=== PATIENT | male | born 1985 | race Caucasian/White ===

== ENCOUNTER 2016-10-12 04:42 | Emergency (ER) | payer BC ==
[2016-10-12 05:29] VITALS: RESP 16
[2016-10-12] MEDS ORDERED: NITROGLYCERIN SL TABS 0.4 MG TAB SUBLINGUAL STA (05:30)
[2016-10-12] MEDS ORDERED: ASPIRIN 81 MG CHEW PO STA (05:30)
--- NOTE | 2016-10-12 05:32 | ED ---
Chest Pain HPI - General Chief Complaint: Chest Pain Stated Complaint: CHEST PAINW Time Seen by Provider: 10/12/16 04:54 Source: patient Mode of arrival: wheelchair Limitations: no limitations - History of Present Illness Initial Comments: This patient is a 31-year-old man who presents to be evaluated for pain to the left side of his chest. He indicates the left anterior axillary line over the lower ribs there. He describes it as a tightness, states it is constant, about 6 out of 10 intensity. He has not noted any worsening or relieving factors. And after review of systems he is denying any associated symptoms. 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) Complaint: chest pain -: hour(s) (9) Onset: other (While at work) Pain Location: left chest Pain Radiation: none Severity scale (1-10): 6 Quality: tightness Consistency: constant Improves With: nothing Worsens With: nothing Treatments Prior to Arrival: none - Related Data Home Medications Medication Instructions Recorded Confirmed No Known Home Medications [No 10/12/16 10/12/16 Known Home Medications] Allergies Allergy/AdvReac Type Severity Reaction Status Date / Time No Known Allergies Allergy Verified 10/12/16 04:50 Review of Systems ROS Statement: Those systems with pertinent positive or pertinent negative responses have been documented in the HPI. ROS Other: All systems not noted in ROS Statement are negative. Constitutional: Denies: fever, chills, weakness Respiratory: Denies: cough, dyspnea Cardiovascular: Reports: as per HPI, chest pain. Denies: palpitations, dyspnea on exertion, edema Gastrointestinal: Denies: abdominal pain, nausea, vomiting Genitourinary: Denies: dysuria Musculoskeletal: Denies: back pain Skin: Denies: rash Neurological: Denies: headache, weakness, numbness EKG Findings - EKG Results: EKG: interpreted by AYUSH AYALA, sinus rhythm (Rate 62 bpm), normal axis, normal QRS, normal ST/T, no acute changes - OR, Pacemaker, Normal: Normal tracing: normal tracing Past Medical History Past Medical History: No Reported History History of Any Multi-Drug Resistant Organisms: None Reported Past Surgical History: No Surgical Hx Reported Past Psychological History: No Psychological Hx Reported Smoking Status: Never smoker Past Alcohol Use History: None Reported Past Drug Use History: None Reported General Exam Limitations: no limitations General appearance: alert, in no apparent distress Head exam: Present: atraumatic, normocephalic Eye exam: Present: normal appearance. Absent: scleral icterus, conjunctival injection Respiratory exam: Present: normal lung sounds bilaterally. Absent: respiratory distress, wheezes, rales, rhonchi, stridor, chest wall tenderness, accessory muscle use, decreased breath sounds Cardiovascular Exam: Present: regular rate, normal rhythm, normal heart sounds. Absent: systolic murmur, diastolic murmur, rubs, gallop GI/Abdominal exam: Present: soft. Absent: distended, tenderness, guarding, rebound, mass Extremities exam: Present: normal inspection, normal capillary refill. Absent: pedal edema, calf tenderness Back exam: Present: normal inspection. Absent: tenderness, CVA tenderness (R), CVA tenderness (L), vertebral tenderness Neurological exam: Present: alert Skin exam: Present: warm, dry, intact, normal color. Absent: rash Course Vital Signs 10/12/16 10/12/16 04:47 05:28 Temperature 98.0 F Pulse Rate 69 79 Respiratory 18 16 Rate Blood Pressure 139/87 127/84 O2 Sat by Pulse 96 98 Oximetry Disposition Clinical Impression: Chest pain Disposition: HOME SELF-CARE Condition: Good Instructions: Chest Pain (ED) Referrals: None,Stated [Primary Care Provider] - 1-2 days Tatiana Busby MD [STAFF PHYSICIAN] - 1-2 days
[2016-10-12 05:50] LABS: Basophils % (A) 1 %; CH 31.1; CHCM 34.2; Eosinophils # (A) 0.2 k/uL (0-0.7); Eosinophils % (A) 3 %; HCT 48.5 % (39.0-53.0); HGB 16.2 gm/dL (13.0-17.5); Luc # (Auto) 0.13; Luc % (Auto) 2; Lymphocytes # (A) 2.8 k/uL (1.0-4.8); Lymphocytes % (A) 38 %; MCH 30.5 pg (25.0-35.0); MCHC 33.4 g/dL (31.0-37.0); MCV 91.4 fL (80.0-100.0); Mean Platelet Volume 7.8; Monocytes # (A) 0.4 k/uL (0-1.0); Monocytes % (A) 6 %; Neutrophils # (A) 3.7 k/uL (1.3-7.7); Neutrophils % (A) 52 %; RBC 5.31 m/uL (4.30-5.90); WBC 7.3 k/uL (3.8-10.6); WBC (Perox) 7.27
[2016-10-12 06:02] LABS: ALT 77 U/L (21-72); AST 38 U/L (17-59); Alkaline Phosphatase 50 U/L (38-126); Amylase 51 U/L (30-110); Anion Gap 10 mmol/L; Blood Urea Nitrogen 14 mg/dL (9-20); Calcium 9.4 mg/dL (8.4-10.2); Carbon Dioxide 28 mmol/L (22-30); Chloride 104 mmol/L (98-107); Glucose 102 mg/dL (74-99); Non-African American GFR(MDRD) >60 (>60 ml/min/1.73 sqM); Potassium 4.2 mmol/L (3.5-5.1); Sodium 142 mmol/L (137-145); Total Bilirubin 0.5 mg/dL (0.2-1.3); Total Protein 6.9 g/dL (6.3-8.2)
[2016-10-12 06:16] LABS: INR 1.1 (<1.1)
[2016-10-12 06:17] LABS: Partial Thromboplastin Time 25.5 sec (22.0-30.0); Prothrombin Time 10.7 sec (9.0-12.0)
--- NOTE | 2016-10-12 06:28 | XR ---
EXAM: Single view of the chest. INDICATION: 31 year-old male chest pain. COMPARISON: 10/23/2014. FINDINGS: Single frontal view demonstrates a normal cardiomediastinal silhouette. The lungs are clear. No focal consolidation, pneumothorax, or pleural effusions. The visualized osseous structures are within normal limits. IMPRESSION: No acute cardiopulmonary disease.
[2016-10-12 07:18] VITALS: BP 116/82; PULSE 76; TEMP 97.2
== END 2016-10-12 07:17 | disposition home or self-care (01) ==
LOC: EC 04:42
DX: R07.9 Chest pain, unspecified (principal)
CPT/HCPCS: 36415; 71010; 80053; 82150; 83690; 83735; 84484; 85025; 85379; 85610; 85730; 93005; 99285

== ENCOUNTER 2018-07-07 08:30 | Emergency (ER) | payer BC ==
[2018-07-07 08:35] VITALS: BP 151/94; PULSE 80; RESP 18; TEMP 98
--- NOTE | 2018-07-07 09:38 | ED ---
General Adult HPI - General Chief complaint: ENT Stated complaint: Tongue Swelling Time Seen by Provider: 07/07/18 08:42 Source: patient, RN notes reviewed Mode of arrival: ambulatory Limitations: no limitations - History of Present Illness Initial comments: 32-year-old male presents to the emergency department for a chief complaint of sore throat 3 days. Patient states he feels like the back of his tongue is swelling in his uvula is swelling. Patient noticed today his right lower neck started to feel swollen where his lymph node was as well. Patient states he has pain with swallowing. Patient does not have any difficulty swallowing solids or liquids. He does not have any difficulty breathing. Patient states he tried to go to urgent care but when he told them his tongue felt swollen they had him come to the emergency department. Patient also has a dry cough. No fevers or chills. Patient is not a smoker. Patient has no other complaints at this time including shortness of breath, chest pain, abdominal pain, nausea or vomiting, headache, or visual changes. - Related Data Home Medications Medication Instructions Recorded Confirmed Ibuprofen [Advil] 400 mg PO Q6H PRN 07/07/18 07/07/18 Previous Rx's Medication Instructions Recorded Amoxicillin 875 mg PO Q12HR #20 tablet 07/07/18 predniSONE 50 mg PO DAILY #5 tablet 07/07/18 Allergies Allergy/AdvReac Type Severity Reaction Status Date / Time No Known Allergies Allergy Verified 07/07/18 08:55 Review of Systems ROS Statement: Those systems with pertinent positive or pertinent negative responses have been documented in the HPI. ROS Other: All systems not noted in ROS Statement are negative. Past Medical History Past Medical History: No Reported History History of Any Multi-Drug Resistant Organisms: None Reported Past Surgical History: No Surgical Hx Reported Past Psychological History: No Psychological Hx Reported Smoking Status: Never smoker Past Alcohol Use History: Occasional Past Drug Use History: None Reported General Exam Limitations: no limitations General appearance: alert, in no apparent distress Head exam: Present: atraumatic, normocephalic, normal inspection Eye exam: Present: normal appearance, PERRL, EOMI. Absent: scleral icterus, conjunctival injection, periorbital swelling ENT exam: Present: normal exam, normal oropharynx (No appreciable swelling noted of the oropharynx. No appreciable swelling of the tongue. There is minimal uvulitis. No tonsillar exudates bilaterally. Uvula is midline. No evidence of a peritonsillar abscess.), mucous membranes moist, TM's normal bilaterally, normal external ear exam Neck exam: Present: full ROM, lymphadenopathy (Patient does have small nontender submandibular lymph nodes noted bilaterally.). Absent: tenderness, meningismus Respiratory exam: Present: normal lung sounds bilaterally. Absent: respiratory distress, wheezes, rales, rhonchi, stridor Cardiovascular Exam: Present: regular rate, normal rhythm, normal heart sounds. Absent: systolic murmur, diastolic murmur, rubs, gallop, clicks Neurological exam: Present: alert, oriented X3, CN II-XII intact Psychiatric exam: Present: normal affect, normal mood Course Vital Signs 07/07/18 08:33 Temperature 98.0 F Pulse Rate 80 Respiratory 18 Rate Blood Pressure 151/94 O2 Sat by Pulse 99 Oximetry Medical Decision Making - Medical Decision Making 32-year-old male presents to the emergency department for a chief complaint of sore throat. Patient states this started a few days ago. He denies any difficulty swallowing solids or liquids or breathing. On exam uvula is midline without any evidence of peritonsillar abscess. There is some minimal swelling noted in the uvula. No tonsillar exudates noted bilaterally. Submandibular lymph nodes noted. Strep was negative. Patient likely has a viral pharyngitis or uvulitis. Patient will be started on steroid due to sensation of swelling. He will also be given amoxicillin due to clinical suspicion for possible bacterial infection. He will continue Motrin and Tylenol at home and remain hydrated. He will return here if any difficulty swallowing or other worsening symptoms. - Lab Data Lab Results 07/07/18 Range/Units 08:57 Group A Strep Rapid Negative (Negative) Disposition Clinical Impression: Uvulitis, Pharyngitis Disposition: HOME SELF-CARE Condition: Good Instructions (If sedation given, give patient instructions): Uvulitis (ED), Pharyngitis (ED) Additional Instructions: Please take antibiotic as directed. Take steroid as directed. Continue to take Advil or Tylenol. Follow up with primary care in 1-2 days. If you have worsening swelling or are unable to swallow solids or liquids return immediately to the emergency department. Prescriptions: Amoxicillin 875 mg PO Q12HR #20 tablet predniSONE 50 mg PO DAILY #5 tablet Is patient prescribed a controlled substance at d/c from ED?: No Referrals: Gualberto Young DO [Primary Care Provider] - 1-2 days Time of Disposition: 09:38
== END 2018-07-07 09:50 | disposition home or self-care (01) ==
LOC: EC 08:30
DX: K12.2 Cellulitis and abscess of mouth (principal); J02.9 Acute pharyngitis, unspecified
CPT/HCPCS: 87081; 87430; 99283

== ENCOUNTER → 2024-04-29 | Outpatient (CLI) | payer BC ==
--- NOTE | 2024-04-29 18:49 | CT ---
EXAMINATION TYPE: CT chest w con DATE OF EXAM: 04/29/2024 5:57 PM COMPARISON: Chest radiograph from 10/12/2016 CLINICAL INDICATION: Male, 38 years old with history of R06.02 SHORTNESS OF BREATH; PHH, Pt states he was recently diagnosed with restrictive respiratory disease and SOB. TECHNIQUE: Multiple axial images were obtained through the chest. Sagittal and coronal reformats were created for review. MIP was performed on a separate workstation. Contrast used:100 ml mL of Isovue 300 with IV Contrast (None if empty) Oral contrast used: (None if empty) CT DLP: 656 mGycm, Automated exposure control for dose reduction was used. FINDINGS: LUNGS/ PLEURA: No focal consolidation, pneumothorax or pleural effusion. Streaky atelectasis in the left lung base. AIRWAY: Patent and unremarkable. HEART: Size within normal limits. MEDIASTINUM: No gross evidence of adenopathy. VASCULATURE: No aortic aneurysm. 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 MUSCULOSKELETAL: No acute osseous abnormalities SOFT TISSUES/LYMPH NODES: Unremarkable. LOWER NECK: No significant findings. UPPER ABDOMEN: Left simple appearing renal cysts. IMPRESSION: No acute process. [facility], , 04/29/2024 6:46 PM
== END | disposition home or self-care (01) ==
LOC: RADCTMAIN 17:13
PROVIDERS: ATTEND Family Medicine
DX: R06.02 Shortness of breath (principal)
CPT/HCPCS: 71260; Q9967